=== PATIENT | male | born 1990 | race Two or more races ===

== ENCOUNTER 2018-02-05 20:17 | Emergency (ER) | payer OTHER ==
[~2018-02-05] VITALS: Ht 175.3 cm; Wt 77.1 kg
[2018-02-05] MEDS ORDERED: NKM (20:22)
[2018-02-05] MEDS ORDERED: Norco 5mg/325mg tab ORAL ONE (20:30)
[2018-02-05] MEDS ORDERED: Lidocaine 1% MPF 10mg/ml 5ml INJ ONE (20:30)
--- NOTE | 2018-02-05 20:38 | Emergency Room Report ---
History of Present Illness General Chief Complaint: Laceration Source: Patient Present Illness HPI patient is a 27-year-old male with no significant past medical history here with a laceration on right forearm post injury at work. Patient claims that he was trying to put trash inside the trash can and the corner of the trash and gave him a cut. Patient is rating the pain 10 out of 10 with no radiation or numbness or tingling. Patient appears with a 4 cm deep laceration on the right forearm. The amount of bleeding present. Denies any other injury, Dizziness, Headache. Patient has Worker's Comp. has not taken any medication for pain. Injury just occurred 45 minutes ago Allergies: Coded Allergies: No Known Allergies (Unverified , 02/05/18) Patient History Past Medical History: see triage record Past Surgical History: none Pertinent Family History: none Immunizations: UTD Reviewed Nursing Documentation: PMH: Agreed; PSxH: Agreed Nursing Documentation-PMH Past Medical History: No Stated History Review of Systems All Other Systems: negative except mentioned in HPI Physical Exam Vital Signs Date Time Temp Pulse Resp B/P (MAP) Pulse Ox O2 Delivery O2 Flow Rate FiO2 02/05/18 20:18 97.7 98 16 127/83 96 Room Air 97.7 Sp02 EP Interpretation: reviewed, normal General Appearance: normal inspection, well appearing, no apparent distress, alert, GCS 15 Head: normocephalic, atraumatic Eyes: bilateral eye normal inspection, bilateral eye PERRL ENT: normal ENT inspection, hearing grossly normal Neck: normal inspection, full range of motion, supple Respiratory: normal inspection, chest non-tender, lungs clear, no rhonchi, no retraction, no wheezing Cardiovascular #1: normal inspection, normal peripheral pulses, no murmur Cardiovascular #2: 2+ radial (R), 2+ radial (L) Gastrointestinal: normal inspection, soft Rectal: deferred Genitourinary: deferred Musculoskeletal: back normal, digits/nails normal, other - lac on right forearm Neurologic: normal inspection, alert, oriented x3 Psychiatric: normal inspection, judgement/insight normal, memory normal Skin: no rash, warm/dry, laceration - deep lac right forearm Lymphatic: normal inspection, no adenopathy Procedures Laceration/Wound Repair Laceration/Wound Repair : Consent: Verbal Wound Location: upper extremity - right forearm Wound's Depth, Shape: into muscle Betadine Prep?: Yes Anesthesia: 1% Lidocaine Volume Anesthetic (ccs): 10 Wound Debrided: minimal Wound Repaired With: sutures Suture Size/Type: 4:0 - vicryle Layer Closure?: Yes Sterile Dressing Applied?: Yes Splint Applied?: No Medical Decision Making PA Attestation all diagnosis and treatment plans are reviewed and discussed with my supervising physician Diagnostic Impression: Primary Impression: Laceration of forearm ER Course patient is a 27-year-old male with no significant past medical history here with a laceration on right forearm post injury at work. Patient claims that he was trying to put trash inside the trash can and the corner of the trash and gave him a cut. Patient is rating the pain 10 out of 10 with no radiation or numbness or tingling. Patient appears with a 4 cm deep laceration on the right forearm. The amount of bleeding present. Denies any other injury, Dizziness, Headache. Patient has Worker's Comp. has not taken any medication for pain. Injury just occurred 45 minutes ago Ddx considered but are not limited to deep laceration right forearm, fx secondary to laceration Vital signs: are WNL, pt. is afebrile H&PE are most consistent with deep laceration right forearm ORDERS: nroco 5mg, right forearm Xray, bactrim Ds, bactroban, [id number] ED INTERVENTIONS: norco 5mg, xray right forearm DISCHARGE: At this time pt. is stable for d/c to home. Will provide printed patient care instructions, and any necessary prescriptions. Care plan and follow up instructions have been discussed with the patient prior to discharge. Other X-Ray Diagnostic Results Other X-Ray Diagnostic Results : X-Ray ordered: right forearm Xray # of Views/Limited Vs Complete: 2 View Indication: Other - deep lac EP Interpretation: Yes PA Xray: by supervising MD, and agrees with findings. Interpretation: no dislocation, no soft tissue swelling, no fractures, other - no FB Impression: No acute disease Electronically Signed by: chrissie Vazquez PA-C Last Vital Signs Date Time Temp Pulse Resp B/P (MAP) Pulse Ox O2 Delivery O2 Flow Rate FiO2 02/05/18 20:18 97.7 98 16 127/83 96 Room Air 97.7 Disposition: HOME, SELF-CARE Condition: Stable Scripts Naproxen* (NAPROXEN*) 500 Mg Tablet 500 MG ORAL TWICE A DAY, #30 TAB Prov: Chrissie Soto 02/05/18 Mupirocin Calcium (Bactroban) 15 Gm Cream..g. 1 APPLIC TOPIC THREE TIMES A DAY, #1 TUBE Prov: Chrissie Soto 02/05/18 Trimethoprim/Sulfamethoxazole (Bactrim Ds Tablet) 1 Each Tablet 1 TAB ORAL TWICE A DAY for 10 Days, #20 TAB Prov: Chrissie Soto 02/05/18 Patient Instructions: Laceration Care, Adult Additional Instructions: follow up with pcp for wound check. if fever/chills, return to ED. if tingling/ numbness, loss of motor function in arm, return to ED Chrissie Soto Feb 05, 2018 20:38
[2018-02-05] MEDS ORDERED: BACTROBAN CR1 APPLIC TOPIC (21:16)
[2018-02-05] MEDS ORDERED: NAPROXEN500 M2 ORAL (21:16)
[2018-02-05] MEDS ORDERED: BACTRIM-DS1 EA ORAL (21:16)
[2018-02-05 22:00] VITALS: BP 127/83
[2018-02-05] MEDS ORDERED: Tetanus/Diptheria/Pertussis Vaccine 0.5ml Syr IM ONE (22:00)
[2018-02-05] MEDS ORDERED: Bacitracin Oint UD TOPIC ONE ×2 (22:02→22:15)
[2018-02-05] MEDS ORDERED: Bacitracin Opth Oint BOTH EYES ONE (22:15)
--- NOTE | 2018-02-05 22:22 | Diagnostic Imaging Report ---
EXAM: XR Right Forearm, 2 Views CLINICAL HISTORY: TRAUMA TECHNIQUE: Frontal and lateral views of the right forearm. COMPARISON: No relevant prior studies available. FINDINGS: Bones/joints: No acute displaced fracture or dislocation. Soft tissues: No radiopaque foreign body. Soft tissue swelling. IMPRESSION: 1. No acute displaced fracture or dislocation. 2. No radiopaque foreign body.
== END 2018-02-05 22:24 | disposition home or self-care (01) ==
LOC: EMR 20:20
DX: S51.811A Laceration without foreign body of right forearm, initial encounter (principal); W45.8XXA Other foreign body or object entering through skin, initial encounter; Y92.511 Restaurant or cafe as the place of occurrence of the external cause; Y99.0 Civilian activity done for income or pay; Z23 Encounter for immunization
CPT/HCPCS: 90471; 90715; 96372; 99283

== ENCOUNTER 2018-02-18 19:07 | Emergency (ER) | payer OTHER ==
[~2018-02-18] VITALS: Ht 182.9 cm; Wt 86.2 kg
[~2018-02-18 19:07] MED LIST: BACTRIM-DS1 EA ORAL; BACTROBAN CR1 APPLIC TOPIC; NAPROXEN500 M2 ORAL; NKM
[2018-02-18] MEDS ORDERED: BACITRACIN-P28.35 GM TP (19:19)
--- NOTE | 2018-02-18 19:19 | Emergency Room Report ---
"History of Present Illness General Chief Complaint: Wound Recheck/Suture Removal Source: Patient Present Illness HPI 27-year-old male presents to the emergency department for suture removal from laceration to the right forearm which was closed here in the emergency department 2 weeks ago. Patient reports some itchiness at the site he denies discharge, bleeding, fevers, increased temperature palpation. Patient reports some erythema around each of the sutures. He states that he finished all his antibiotics. Allergies: Coded Allergies: No Known Allergies (Unverified , 02/05/18) Patient History Past Medical History: see triage record Past Surgical History: none Pertinent Family History: none Immunizations: UTD Reviewed Nursing Documentation: PMH: Agreed; PSxH: Agreed Nursing Documentation-PMH Past Medical History: No Stated History Review of Systems All Other Systems: negative except mentioned in HPI Physical Exam Vital Signs Date Time Temp Pulse Resp B/P (MAP) Pulse Ox O2 Delivery O2 Flow Rate FiO2 02/18/18 19:12 98.0 82 16 118/70 98 Room Air 98.1 Sp02 EP Interpretation: reviewed, normal General Appearance: no apparent distress, alert, GCS 15, non-toxic Head: normocephalic, atraumatic ENT: hearing grossly normal, normal voice Neck: full range of motion Respiratory: lungs clear, normal breath sounds, speaking full sentences Cardiovascular #1: regular rate, rhythm, normal capillary refill Musculoskeletal: back normal, gait/station normal, normal range of motion, non- tender Neurologic: alert, oriented x3, responsive, motor strength/tone normal, sensory intact, speech normal, grossly normal Psychiatric: judgement/insight normal Skin: normal color, no rash, warm/dry, well hydrated, wd healing/no infection noted - healed laceration of the right forearm Lymphatic: no adenopathy Medical Decision Making PA Attestation Dr. delgadillo is my supervising Physician whom patient management has been discussed with. Diagnostic Impression: Primary Impression: Encounter for removal of sutures ER Course 27-year-old male presents to the emergency department for suture removal from laceration to the right forearm which was closed here in the emergency department 2 weeks ago. Patient reports some itchiness at the site he denies discharge, bleeding, fevers, increased temperature palpation. Patient reports some erythema around each of the sutures. He states that he finished all his antibiotics. Ddx considered but are not limited to laceration, tendon injury, cellulitis, dehiscence. Vital signs: are WNL, pt. is afebrile H&PE are most consistent with: healed laceration of the right forearm ORDERS: none required at this time, the diagnosis is clinical ED INTERVENTIONS: - 9 Sutures removed. DISCHARGE: At this time pt. is stable for d/c to home. Will provide printed patient care instructions, and any necessary prescriptions. Care plan and follow up instructions have been discussed with the patient prior to discharge. Last Vital Signs Date Time Temp Pulse Resp B/P (MAP) Pulse Ox O2 Delivery O2 Flow Rate FiO2 02/18/18 19:12 98.0 82 16 118/70 98 Room Air 98.1 Disposition: HOME, SELF-CARE Condition: Stable Scripts Bacitracin/Polymyxin B Sulfate (BACITRACIN-POLYMYXIN OINTMENT) 28.35 Gm Oint...g. 1 APPLIC TP BID, #28.3 GM Prov: Ting Bingham 02/18/18 Patient Instructions: Suture Removal, Care After Additional Instructions: Take medications as directed. Follow up with a Primary Care Provider in 3-5 days, even if your symptoms have resolved. --Please review list of primary care clinics, if you do not already have a primary care provider Return sooner to ED if new symptoms occur, or current symptoms become worse. - Please note that this Emergency Department Report was dictated using [employer] | [employer] technology software, occasionally this can lead to erroneous entry secondary to interpretation by the dictation equipment. Ting Bingham Feb 18, 2018 19:19"
[2018-02-18 19:21] VITALS: BP 118/70
[2018-02-18 19:38] VITALS: BP 118/70
== END 2018-02-18 19:38 | disposition home or self-care (01) ==
LOC: EMR 19:30
DX: Z48.02 Encounter for removal of sutures (principal); Z48.817 Encounter for surgical aftercare following surgery on the skin and subcutaneous tissue
CPT/HCPCS: 99281